=== PATIENT | female | born 1985 | race Two or more races ===

== ENCOUNTER 2022-02-06 08:00 | Inpatient (IN) | payer OTHER ==
[2022-02-06 09:53] VITALS: BMI 32.1
[2022-02-06] MEDS ORDERED: CITRIC ACID/SODIUM CITRATE 30 ML UNIT-DOSE CUP PO ONE ×2 (10:30→12:03)
[2022-02-06] MEDS ORDERED: ELECTROLYTE-148 SOLN 500 ML IV SCH (10:30)
[2022-02-06] MEDS ORDERED: ELECTROLYTE-148 SOLN 1,000 ML IV SCH (10:30)
[2022-02-06] MEDS ORDERED: OXYTOCIN 20 UNITS in 0.9% NS 20 UNIT/1,000 ML INFUS.BAG IV ONE ×3 (12:06→15:19)
[2022-02-06] MEDS ORDERED: ePHEDrine SULFATE 50 MG/1 ML AMPULE ONE (12:07)
[2022-02-06] MEDS ORDERED: PHENYLEPHRINE HCL 10 MG/1 ML SINGLE DOSE VIAL ONE (12:07)
[2022-02-06] MEDS ORDERED: morphine SULFATE/PF 1 MG/2 ML (2cc Syringe - QUVA) ONE (12:07)
[2022-02-06] MEDS ORDERED: ceFAZolin SODIUM 1 GM VIAL ONE (12:19)
[2022-02-06] MEDS ORDERED: OXYTOCIN 10 UNITS/ML VIAL ONE (12:31)
[2022-02-06] MEDS ORDERED: MIDAZOLAM HCL 2 MG/2 ML SINGLE DOSE VIAL ONE (12:46)
[2022-02-06] MEDS ORDERED: PROPOFOL 20 ML ONE ×2 (12:50→13:49)
[2022-02-06] MEDS ORDERED: ONDANSETRON 4 MG/2 ML VIAL ONE (12:54)
[2022-02-06 13:13] LABS: CORD HCO3 25.1 mmHg (20-29); CORD PCO2 65.1 mmHg (30-78); CORD pH 7.204 (7.14-7.44)
[2022-02-06 13:16] LABS: CORD HCO3 23.2 mmHg (20-29); CORD PCO2 47.7 mmHg (30-78); CORD pH 7.304 (7.14-7.44)
[2022-02-06] MEDS ORDERED: KETOROLAC TROMETHAMINE 30 MG/1 ML VIAL ONE (13:50)
[2022-02-06] MEDS ORDERED: IBUPROFEN 600 MG TABLET (FP) PO PRN (14:23)
[2022-02-06] MEDS ORDERED: ACETAMINOPHEN 325 MG TABLET (FP) PO PRN ×2 (14:23→14:29)
[2022-02-06] MEDS ORDERED: oxyCODONE HCL 5 MG TABLET PO PRN ×2 (14:23→14:29)
[2022-02-06] MEDS ORDERED: SENNOSIDES/DOCUSATE COMBO (SENNA PLUS) TABLET (UD) PO PRN (14:23)
[2022-02-06] MEDS ORDERED: ONDANSETRON 4 MG/2 ML VIAL IVPB PRN (14:23)
[2022-02-06] MEDS ORDERED: IBUPROFEN 800 MG/8 ML IJ IVPB PRN (14:23)
[2022-02-06] MEDS ORDERED: ACETAMINOPHEN 1000 MG/100 ML BAG IVPB PRN ×2 (14:23→14:29)
[2022-02-06] MEDS ORDERED: ONDANSETRON 4 MG/2 ML VIAL IVPUSH PRN (14:24)
[2022-02-06] MEDS ORDERED: OXYTOCIN 20 UNITS in 0.9% NS 20 UNIT/1,000 ML INFUS.BAG IV SCH (14:30)
[2022-02-06] MEDS: IBUPROFEN 800 MG/8 ML IJ IVPB SCH ×2 (15:40→21:58)
[2022-02-06] MEDS ORDERED: IBUPROFEN 800 MG/8 ML IJ IVPB ONE (15:50)
[2022-02-06] MEDS: IBUPROFEN 600 MG TABLET (FP) PO SCH ×3 (15:57→23:13)
[2022-02-06] MEDS: SIMETHICONE 80 MG TAB.CHEW (FP) PO PRN (21:56)
[2022-02-07] MEDS: IBUPROFEN 600 MG TABLET (FP) PO SCH ×6 (03:14→22:25)
[2022-02-07] MEDS: IBUPROFEN 800 MG/8 ML IJ IVPB SCH (06:14)
[2022-02-07 07:44] LABS: BASO % 0.1 % (0-2.0); EOS % 0.5 % (0-4.5); HEMATOCRIT 23.7 % (32.4-45.2); LYMPH % 12.7 % (8-40); MCH 26.2 pg (25.7-33.7); MCHC 33.8 g/dl (32.0-36.0); MEAN CELL VOLUME 77.6 fl (80-96); MEAN PLT VOLUME 9.1 fl (7.5-11.1); MONO % 7.4 % (3.8-10.2); NEUT % 79.3 % (42.8-82.8); PLATELET COUNT 160 10^3/uL (134-434); RBC 3.06 M/mm3 (3.60-5.2); RDW 15.6 % (11.6-15.6); WHITE BLOOD COUNT 7.9 K/mm3 (4.0-10.0)
[2022-02-07] MEDS: PRENATAL VITAMINS W/ FOLIC ACID TABLET (FP) PO SCH (10:21)
[2022-02-07] MEDS ORDERED: FERROUS SO4 325 MG TABLET (FP) PO ONE (12:42)
[2022-02-07] MEDS ORDERED: BISACODYL 10 MG SUPP.RECT RC PRN (14:23)
[2022-02-07] MEDS: ACETAMINOPHEN 325 MG TABLET (FP) PO SCH ×2 (14:29→21:18)
[2022-02-07] MEDS: SIMETHICONE 80 MG TAB.CHEW (FP) PO PRN ×3 (14:30→21:18)
[2022-02-08] MEDS: IBUPROFEN 600 MG TABLET (FP) PO SCH ×3 (02:30→09:46)
[2022-02-08] MEDS: ACETAMINOPHEN 325 MG TABLET (FP) PO SCH ×2 (02:30→08:01)
[2022-02-08] MEDS: SIMETHICONE 80 MG TAB.CHEW (FP) PO PRN (05:58)
[2022-02-08 08:59] VITALS: BP 116/74; PULSE 83; TEMP 98.1
[2022-02-08] MEDS: PRENATAL VITAMINS W/ FOLIC ACID TABLET (FP) PO SCH (09:15)
[2022-02-08 09:40] LABS: BASO % 0.3 % (0-2.0); EOS % 0.6 % (0-4.5); HEMATOCRIT 24.9 % (32.4-45.2); HEMOGLOBIN 8.5 GM/dL (10.7-15.3); LYMPH % 17.9 % (8-40); MCH 26.7 pg (25.7-33.7); MCHC 34.2 g/dl (32.0-36.0); MEAN CELL VOLUME 78.1 fl (80-96); MEAN PLT VOLUME 9.6 fl (7.5-11.1); MONO % 7.7 % (3.8-10.2); NEUT % 73.5 % (42.8-82.8); PLATELET COUNT 213 10^3/uL (134-434); RBC 3.18 M/mm3 (3.60-5.2); WHITE BLOOD COUNT 8.3 K/mm3 (4.0-10.0)
== END 2022-02-08 13:40 | disposition home or self-care (01) | DRG 540 ==
LOC: JLDR 08:00 → J3W 16:00
PROVIDERS: ADMIT Family Medicine; ATTEND Family Medicine
PROC: 10D00Z1 Extraction of Products of Conception, Low, Open Approach (ICD-10-PCS; principal; 2022-02-06)
DX: O34.211 Maternal care for low transverse scar from previous cesarean delivery (principal); Z3A.39 39 weeks gestation of pregnancy; Z37.0 Single live birth
CPT/HCPCS: 36415; 36600; 82803; 85025; 88307-TC

== ENCOUNTER 2022-02-12 15:45 | Inpatient (IN) | payer OTHER ==
[2022-02-12 15:56] VITALS: BMI 32.1
[2022-02-12] MEDS ORDERED: ACETAMINOPHEN 1000 MG/100 ML BAG IVPB ONE (17:42)
[2022-02-12] MEDS ORDERED: ACETAMINOPHEN INJECTION 100 ML IVPB ONE (17:54)
[2022-02-12 19:30] LABS: BASO % 0.4 % (0-2.0); HEMATOCRIT 25.5 % (32.4-45.2); HEMOGLOBIN 8.3 GM/dL (10.7-15.3); LYMPH % 31.7 % (8-40); MCH 25.3 pg (25.7-33.7); MCHC 32.3 g/dl (32.0-36.0); MEAN CELL VOLUME 78.2 fl (80-96); MEAN PLT VOLUME 8.7 fl (7.5-11.1); MONO % 6.7 % (3.8-10.2); NEUT % 59.2 % (42.8-82.8); PLATELET COUNT 309 10^3/uL (134-434); RBC 3.27 M/mm3 (3.60-5.2); RDW 16.2 % (11.6-15.6); WHITE BLOOD COUNT 5.7 K/mm3 (4.0-10.0)
[2022-02-12 19:34] LABS: EPI CELLS 5 /uL (0-25.1); HYALINE CASTS 17 /uL (0-3.1); PH,URINE 5.5 (5.0-8.0); URINE APPEARANCE TURBID; URINE BACTERIA 5 /uL (0-1359); URINE BILIRUBIN NEGATIVE (NEGATIVE); URINE COLOR RED; URINE GLUCOSE (UA) NEGATIVE (NEGATIVE); URINE KETONE NEGATIVE (NEGATIVE); URINE LEUK ESTERASE 3+ (NEGATIVE); URINE NITRITE NEGATIVE (NEGATIVE); URINE PROTEIN 2+ (NEGATIVE); URINE RBC 16209 /uL (0-23.9); URINE UROBILINOGEN 0.2 mg/dL (0.2-1.0); URINE WBC 640 /uL (0-25.8)
[2022-02-12 19:38] LABS: INR 1.06 (0.83-1.09); PROTHROMBIN TIME (PATIENT) 12.2 SEC (9.7-13.0)
[2022-02-12 19:41] LABS: ACTIVATED PTT 30.1 SECONDS (25.2-36.5)
[2022-02-12 19:54] LABS: CALCIUM 8.5 mg/dL (8.5-10.1)
[2022-02-12 19:55] LABS: ALBUMIN 2.9 g/dl (3.4-5.0); BLOOD UREA NITROGEN 7.6 mg/dL (7-18)
[2022-02-12 19:58] LABS: CREATININE 0.5 mg/dL (0.55-1.3)
[2022-02-12 20:00] LABS: BILIRUBIN,TOTAL 0.2 mg/dL (0.2-1); TOT PROT 6.4 g/dl (6.4-8.2)
[2022-02-13 00:02] VITALS: TEMP 98.3
[2022-02-13] MEDS ORDERED: IBUPROFEN 600 MG TABLET (FP) PO PRN ×2 (07:27→07:57)
[2022-02-13] MEDS ORDERED: DOCUSATE SODIUM 100 MG CAPSULE (FP) PO PRN (07:27)
[2022-02-13 08:26] LABS: BASO % 0.6 % (0-2.0); EOS % 2.3 % (0-4.5); HEMATOCRIT 25.6 % (32.4-45.2); HEMOGLOBIN 8.6 GM/dL (10.7-15.3); LYMPH % 29.2 % (8-40); MCH 25.9 pg (25.7-33.7); MCHC 33.4 g/dl (32.0-36.0); MEAN CELL VOLUME 77.6 fl (80-96); MEAN PLT VOLUME 8.7 fl (7.5-11.1); MONO % 6.5 % (3.8-10.2); NEUT % 61.4 % (42.8-82.8); PLATELET COUNT 330 10^3/uL (134-434); RBC 3.31 M/mm3 (3.60-5.2); RDW 16.3 % (11.6-15.6); WHITE BLOOD COUNT 5.1 K/mm3 (4.0-10.0)
[2022-02-13 08:56] LABS: ALBUMIN 2.9 g/dl (3.4-5.0); BLOOD UREA NITROGEN 6.4 mg/dL (7-18); CALCIUM 8.1 mg/dL (8.5-10.1); MAGNESIUM 2.1 mg/dL (1.8-2.4)
[2022-02-13 08:58] LABS: BILIRUBIN,TOTAL 0.2 mg/dL (0.2-1); CREATININE 0.5 mg/dL (0.55-1.3); TOT PROT 6.3 g/dl (6.4-8.2)
[2022-02-13 08:59] LABS: PHOSPHOROUS 4.8 mg/dL (2.5-4.9)
[2022-02-13] MEDS ORDERED: ASPIRIN 325 MG TABLET ONE (09:45)
[2022-02-13] MEDS ORDERED: PRENATAL VITAMINS W/ FOLIC ACID TABLET (FP) PO SCH (10:00)
[2022-02-13] MEDS ORDERED: ASPIRIN 81 MG CHEWABLE TABLETS PO SCH (10:00)
[2022-02-13 10:46] LABS: EPI CELLS 3 /uL (0-25.1); HYALINE CASTS 0 /uL (0-3.1); URINE APPEARANCE CLEAR; URINE BACTERIA 21 /uL (0-1359); URINE BILIRUBIN NEGATIVE (NEGATIVE); URINE COLOR YELLOW; URINE GLUCOSE (UA) NEGATIVE (NEGATIVE); URINE KETONE NEGATIVE (NEGATIVE); URINE LEUK ESTERASE NEGATIVE (NEGATIVE); URINE NITRITE NEGATIVE (NEGATIVE); URINE PROTEIN NEGATIVE (NEGATIVE); URINE RBC 53 /uL (0-23.9); URINE UROBILINOGEN 0.2 mg/dL (0.2-1.0); URINE WBC 8 /uL (0-25.8)
[2022-02-13 11:23] VITALS: BP 130/86; PULSE 64
== END 2022-02-13 14:02 | disposition home or self-care (01) | DRG 561 ==
LOC: JER 15:45 → JERBED 02-13 00:25
PROVIDERS: ADMIT Internal Medicine; ATTEND Nurse Practitioner Acute Care
DX: O90.89 Other complications of the puerperium, not elsewhere classified (principal); R07.9 Chest pain, unspecified; R60.9 Edema, unspecified; Z98.891 History of uterine scar from previous surgery; R31.9 Hematuria, unspecified
CPT/HCPCS: 36415; 71046-TC-FY; 71275-TC; 80053; 80061; 81003; 83036; 83735; 84100; 84443; 84484; 85025; 85610; 85730; 86850; 86900; 86901; 87086; 93005; 93010; 93306-TC; 93970-TC; 99285-25; C9803-CS; U0003; U0005